=== PATIENT | female | born 2000 | race Caucasian/White ===

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

== ENCOUNTER 2020-09-24 05:53 | Emergency (ER) | payer OTHER ==
[~2020-09-24 05:53] MED LIST: KEFLEX500 MG PO; MONISTAT TOP; PHENERGAN25 M1 PO; PRENATAL FORMU1 EACH PO; REGLAN10 MG PO; [UNRECOGNIZED DRUG - OTHER] TOP
[2020-09-24 06:48] LABS: BILIRUBIN NEGATIVE (NEGATIVE); BLOOD 3+ Ery/uL (NEGATIVE); COLOR YELLOW (YELLOW); GLUCOSE (U) NORMAL (NORMAL); LEUKOCYTES 1+ Leu/uL (NEGATIVE); NITRITE NEGATIVE (NEGATIVE); PROTEIN NEGATIVE (NEGATIVE); SPECIFIC GRAVITY >=1.030 (1.001-1.030); UROBILINOGEN 0.2 mg/dL (0.2-1.0)
[2020-09-24 06:52] LABS: AMPHETAMINES NEGATIVE (NEGATIVE); BARBITURATES NEGATIVE (NEGATIVE); ECSTASY (MDMA) NEGATIVE (NEGATIVE); MARIJUANA (THC) POSITIVE (NEGATIVE); METHADONE NEGATIVE (NEGATIVE); OPIATES NEGATIVE (NEGATIVE); OXYCODONE NEGATIVE (NEGATIVE)
[2020-09-24 06:53] LABS: CLARITY HAZY (CLEAR)
[2020-09-24 06:56] LABS: BACTERIA 1+; MUCOUS TRACE; SQUAMOUS EPITHELIAL CELLS 20-50; URINARY RBC RARE; URINARY WBC 20-50
[2020-09-24 07:10] LABS: BASOPHIL 0.5 % (0-2); EOSINOPHIL 1.1 % (0-5); HGB 11.8 g/dl (12.5-16.0); LYMPHOCYTE 37.6 % (15-48); MCH 28.2 pg (25.0-31.0); MCHC 32.8 g/dL (32.0-36.0); MCV 85.9 fL (78.0-100.0); MONOCYTE 6.5 % (0-12); MPV 10.1 fL (6.0-9.5); NRBC 0; RBC 4.19 M/uL (4.20-5.40); RDW 13.1 % (11.5-14.0); WBC 6.3 K/uL (4.0-10.5)
[2020-09-24 07:22] LABS: ALBUMIN 3.5 g/dL (3.4-5.0); ALKALINE PHOSHATASE 81 U/L (46-116); ALT 30 U/L (14-59); AST 21 U/L (15-37); BILIRUBIN - TOTAL 0.4 mg/dL (0.2-1.0); BUN 11 mg/dL (7-18); BUN/CREAT RATIO (CALC) 17.5 RATIO; CHLORIDE 95 mmol/L (98-107); CO2 (BICARBONATE) 23 mmol/L (21-32); CREATININE 0.63 mg/dL (0.51-0.95); GLOBULIN (CALCULATION) 4.1 g/dL; GLUCOSE 148 mg/dL (74-106); MAGNESIUM 1.9 mg/dL (1.8-2.4); POTASSIUM 2.8 mmol/L (3.5-5.1); TOTAL PROTEIN 7.6 g/dL (6.4-8.2)
[2020-09-24 07:23] LABS: ACETAMINOPHEN (TYLENOL) < 2.0 ug/mL (10.0-30.0)
[2020-09-24 07:33] LABS: PLT 233 K/uL (150-400)
[2020-09-24 10:27] LABS: BUN/CREAT RATIO (CALC) 18.6 RATIO; CREATININE 0.59 mg/dL (0.51-0.95); POTASSIUM 4.2 mmol/L (3.5-5.1)
== END 2020-09-24 12:16 | disposition home or self-care (01) ==
LOC: FER 05:53
PROVIDERS: Emergency Medicine; Emergency Medicine Emergency Medical Services
DX: F32.9 Major depressive disorder, single episode, unspecified (principal); G47.00 Insomnia, unspecified; F41.9 Anxiety disorder, unspecified; Z79.899 Other long term (current) drug therapy; Z20.822 Contact with and (suspected) exposure to COVID-19
CPT/HCPCS: 36415; 80048; 80053; 80305; 81001; 83735; 85025; 93005; G0480; J3480; J7030; U0002